=== PATIENT | female | born 1945 | race Caucasian/White ===

== ENCOUNTER → 2022-03-03 08:46 | Outpatient (BNVA) | payer MEDICARE, SELFPAY | PROVIDERS: Visit Provider Nurse Practitioner Gerontology | DX: B96.20 Unspecified Escherichia coli [E. coli] as the cause of diseases classified elsewhere (principal); N31.9 Neuromuscular dysfunction of bladder, unspecified; N39.0 Urinary tract infection, site not specified; Z78.9 Other specified health status | CPT/HCPCS: 81003; 99205 ==

== ENCOUNTER 2022-03-03 16:31 | Outpatient (REF) | payer MEDICARE, SELFPAY | END 2022-03-03 16:32 | disposition home or self-care (01) | LOC: LBN 16:31 | PROVIDERS: Visit Provider Nurse Practitioner Gerontology | DX: N39.0 Urinary tract infection, site not specified (principal) | CPT/HCPCS: 87077; 87086; 87186 ==